=== PATIENT | female | born 1980 | race African-American/Black ===

== ENCOUNTER → 2022-10-04 | Day surgery (SDC) | payer OTHER ==
[~2022-10-04] MED LIST: ARMOUR THYROID60 MG PO; CIMZIA400 MG/2 M SC; COQ-10100 MG PO; HYDROCHLOROTHIA25 MG PO; KETAMINE HCL INJ 50 MG/ML 10 ML VIAL ONE; KRILL OIL500 MG PO; LIDOCAINE HCL 2% LOCAL INJ 5 ML SDV VIAL INJ ONE; METFORMIN HCL850 MG PO; METOPROLOL SUCC25 MG PO; MULTI-VITAMIN1 EACH PO; VITAMIN C1000 MG PO; VITAMIN D3 COM1 EACH PO; ZETIA10 MG PO; ZINC CHELATED50 M2 PO; ZYRTEC10 M3 PO
[2022-10-04 12:15] VITALS: BP 124/96
== END | disposition home or self-care (01) ==
LOC: OR 08:38
PROVIDERS: ATTEND Internal Medicine Gastroenterology
DX: Z12.11 Encounter for screening for malignant neoplasm of colon (principal); D12.2 Benign neoplasm of ascending colon; K64.8 Other hemorrhoids; I10 Essential (primary) hypertension; I34.1 Nonrheumatic mitral (valve) prolapse; E78.5 Hyperlipidemia, unspecified; E28.2 Polycystic ovarian syndrome; M06.9 Rheumatoid arthritis, unspecified; K21.9 Gastro-esophageal reflux disease without esophagitis; Z01.810 Encounter for preprocedural cardiovascular examination; Z79.84 Long term (current) use of oral hypoglycemic drugs; Z79.899 Other long term (current) drug therapy; Z68.36 Body mass index [BMI] 36.0-36.9, adult; Z80.0 Family history of malignant neoplasm of digestive organs
CPT/HCPCS: 45384; 81025; 93005; J2001